=== PATIENT | male | born 1975 | race Caucasian/White ===

== ENCOUNTER 2023-07-17 12:15 | Emergency (ER) | payer SELFPAY ==
[~2023-07-17] VITALS: Ht 182.9 cm; Wt 120.2 kg
[2023-07-17 17:06] LABS: INFLUENZA B NAA NEGATIVE (NEGATIVE); RESPIRATORY SYNCYTIAL VIR NAA NEGATIVE (NEGATIVE)
[2023-07-17 17:30] VITALS: BP 110/81
== END 2023-07-17 17:44 | disposition left against medical advice (07) ==
LOC: ED 12:15
PROVIDERS: Emergency Medicine
DX: R51.9 Headache, unspecified (principal); R11.0 Nausea; Z53.21 Procedure and treatment not carried out due to patient leaving prior to being seen by health care provider
CPT/HCPCS: 87502; U0002

== ENCOUNTER 2024-04-28 22:46 | Emergency (ER) | payer OTHER ==
[~2024-04-28] VITALS: Ht 182.9 cm; Wt 113.3 kg
--- OUTSIDE RECORDS SUMMARY | 2024-04-28 22:47 | XMS ---
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 - Patient eloped before treatment completed. - Patient with suicidal and/or homicidal ideations eloped. Details: Patient LWBS CRITERIA MET - Group Notification CARE PROVIDERS There are no care providers on record at this time. Ramona has no Care Guidelines for this patient. E.D. VISIT COUNT (12 MO.) 2 [facility]. TOTAL 2 NOTE: Visits indicate total known visits. ED/C VISIT TRACKING (12 MO.) 04/28/2024 22:46 [facility] [place] TYPE: Emergency COMPLAINT: - ABD PAIN 07/17/2023 12:19 [facility] TYPE: Emergency COMPLAINT: - HEADACHE, NAUSEA, SINUS PRESSURE DIAGNOSES: - Headache, unspecified - Nausea - Procedure and treatment not carried out due to patient leaving prior to being seen by health care provider INPATIENT VISIT TRACKING (12 MO.) No inpatient visits to display in this time frame [id number]
[2024-04-28] MEDS ORDERED: JARDIANCE10 MG PO (22:59)
[2024-04-28] MEDS ORDERED: METFORMIN HCL1000 MG PO (22:59)
[2024-04-28] MEDS ORDERED: PROTONIX40 MG PO (22:59)
[2024-04-28] MEDS ORDERED: LIPITOR20 MG PO (22:59)
[2024-04-28] MEDS ORDERED: HYDROCHLOROTH12.5 M1 (23:00)
[2024-04-28] MEDS ORDERED: ACTOS15 MG PO (23:00)
[2024-04-28 23:07] LABS: HEMOGLOBIN 14.6 g/dL (12.0-18.0); RBC 4.96 M/ul (4.3-5.7)
[2024-04-28 23:10] LABS: HEMATOCRIT 43.3 % (35.0-50.0); MCH 29.5 (27-36); MCHC 33.8 g/dl (30-36); MCV 87.3 fl (81-99); PLATELET COUNT 365 K/uL (140-440); RDW 14.1 (10.5-15.0)
[2024-04-28] MEDS ORDERED: ondansetron HCL 4 MG/2 ML VIAL IV ONE ×2 (23:15→23:30)
[2024-04-28 23:21] LABS: ALBUMIN 3.8 g/dL (3.4-5.0); ALBUMIN/GLOBULIN RATIO 1.03 (1.1-2.4); ANION GAP 14.7 (7-21); BILIRUBIN, TOTAL 0.7 ng/dL (0.2-1.0); BUN/CREATININE RATIO 7.85 (6.0-28.6); CALCIUM 9.3 mg/dL (8.5-10.1); CREATININE, SERUM 1.4 mg/dL (0.70-1.30); MAGNESIUM 1.7 mg/dL (1.8-2.4); POTASSIUM 3.7 mmol/L (3.5-5.1); PROTEIN, TOTAL 7.5 g/dL (6.4-8.2)
[2024-04-28 23:22] LABS: BANDS, MANUAL DIFF 2; BASOPHILS, MANUAL DIFF 1; LYMPHOCYTES, MANUAL DIFF 16; MONOCYTES, MANUAL DIFF 10; NEUTROPHILS, MANUAL DIFF 71
[2024-04-28] MEDS ORDERED: KETOROLAC TROMETHAMINE 30 MG/ML VIAL IV ONE (23:30)
[2024-04-28] MEDS ORDERED: LACTATED RINGER'S 1,000 ML IV ONE (23:30)
[2024-04-28] MEDS ORDERED: metroNIDAZOLE 250 MG TAB PO ONE (23:30)
[2024-04-28] MEDS ORDERED: CIPROFLOXACIN 500 MG TAB PO ONE (23:30)
[2024-04-28 23:53] LABS: LACTIC ACID, BLOOD 1.8 mmol/L (0.4-2.0)
[2024-04-29 00:07] LABS: BILIRUBIN, URINE NEGATIVE (negative); BLOOD/HGB, URINE NEGATIVE (Negative); KETONE, URINE NEGATIVE (Negative); LEUK ESTERASE, URINE NEGATIVE (negative); NITRITE, URINE NEGATIVE (negative)
[2024-04-29] MEDS ORDERED: AMOX TR-K CLV1 EAC1 PO (00:36)
[2024-04-29] MEDS ORDERED: ONDANSETRON ODT4 MG PO (00:39)
[2024-04-29 00:50] VITALS: BP 92/59
== END 2024-04-29 00:47 | disposition home or self-care (01) ==
LOC: ED 22:46
PROVIDERS: Internal Medicine
DX: K57.32 Diverticulitis of large intestine without perforation or abscess without bleeding (principal); E11.9 Type 2 diabetes mellitus without complications; I10 Essential (primary) hypertension; K21.9 Gastro-esophageal reflux disease without esophagitis; Z91.041 Radiographic dye allergy status; Z79.899 Other long term (current) drug therapy
CPT/HCPCS: 36415; 74176; 80053; 81003; 83605; 83690; 83735; 85025; 87040; 96361; 96374; 96375; 99284-25; J1885; J2405; J7121

== ENCOUNTER 2024-06-05 07:20 | Emergency (ER) | payer OTHER ==
[~2024-06-05] VITALS: Ht 182.9 cm; Wt 113.0 kg
[~2024-06-05 07:20] MED LIST: ACTOS15 MG PO; AMOX TR-K CLV1 EAC1 PO; HYDROCHLOROTH12.5 M1; JARDIANCE10 MG PO; LIPITOR20 MG PO; METFORMIN HCL1000 MG PO; ONDANSETRON ODT4 MG PO; PROTONIX40 MG PO
--- OUTSIDE RECORDS SUMMARY | 2024-06-05 07:26 | XMS ---
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 - Patient eloped before treatment completed. - Patient with suicidal and/or homicidal ideations eloped. Details: Patient LWBS CRITERIA MET - Group Notification CARE PROVIDERS There are no care providers on record at this time. Ramona has no Care Guidelines for this patient. E.D. VISIT COUNT (12 MO.) 3 [facility]. TOTAL 3 NOTE: Visits indicate total known visits. ED/C VISIT TRACKING (12 MO.) 06/05/2024 07:21 [facility] [place] TYPE: Emergency COMPLAINT: - ABDOMINAL PAIN 04/28/2024 22:46 [facility] [place] TYPE: Emergency COMPLAINT: - ABD PAIN DIAGNOSES: - Diverticulitis of large intestine without perforation or abscess without bleeding - Essential (primary) hypertension - Gastro-esophageal reflux disease without esophagitis - Lower abdominal pain, unspecified - Other mcfp (current) drug therapy - Radiographic dye allergy status - Type 2 diabetes mellitus without complications 07/17/2023 12:19 [facility] [place] TYPE: Emergency COMPLAINT: - HEADACHE, NAUSEA, SINUS PRESSURE DIAGNOSES: - Headache, unspecified - Nausea - Procedure and treatment not carried out due to patient leaving prior to being seen by health care provider INPATIENT VISIT TRACKING (12 MO.) No inpatient visits to display in this time frame [id number]
[2024-06-05] MEDS ORDERED: SODIUM CHLORIDE 0.9% 1,000 ML IV PRN (07:45)
[2024-06-05] MEDS ORDERED: ondansetron HCL 4 MG/2 ML VIAL IV ONE (07:45)
[2024-06-05 07:50] LABS: HEMOGLOBIN 14.5 g/dL (12.0-18.0)
[2024-06-05 07:53] LABS: BASOPHILS 0.6 % (0-2); EOSINOPHILS 1.5 % (0-6); HEMATOCRIT 42.5 % (35.0-50.0); LYMPHOCYTES 17.5 % (24-44); MCH 29.6 (27-36); MCHC 34.1 g/dl (30-36); MCV 86.9 fl (81-99); MONOCYTES 7.3 % (0-12); NEUTROPHILS 73.1 % (39-80); PLATELET COUNT 371 K/uL (140-440); RBC 4.89 M/ul (4.3-5.7); RDW 14.5 (10.5-15.0)
[2024-06-05 07:59] LABS: ALBUMIN 3.9 g/dL (3.4-5.0); ANION GAP 15.1 (7-21); BILIRUBIN, TOTAL 0.6 ng/dL (0.2-1.0); BUN/CREATININE RATIO 10.07 (6.0-28.6); CALCIUM 9.6 mg/dL (8.5-10.1); CREATININE, SERUM 1.29 mg/dL (0.70-1.30); POTASSIUM 4.1 mmol/L (3.5-5.1); PROTEIN, TOTAL 7.8 g/dL (6.4-8.2)
[2024-06-05] MEDS ORDERED: PIPERACILLIN/TAZOBACTAM 4.5 GM in DEXTROSE 5% 100 ML IV ONE (08:30)
[2024-06-05] MEDS ORDERED: AMOX TR-K CLV1 EAC1 PO (08:32)
[2024-06-05 09:32] VITALS: BP 107/87
== END 2024-06-05 09:33 | disposition home or self-care (01) ==
LOC: ED 07:20
PROVIDERS: Emergency Medicine
DX: K57.32 Diverticulitis of large intestine without perforation or abscess without bleeding (principal); E11.9 Type 2 diabetes mellitus without complications; I10 Essential (primary) hypertension; K21.9 Gastro-esophageal reflux disease without esophagitis; Z79.84 Long term (current) use of oral hypoglycemic drugs; Z79.899 Other long term (current) drug therapy; Z91.041 Radiographic dye allergy status
CPT/HCPCS: 36415; 74176; 80053; 83690; 85025; 96365; 96375; 99284-25; J2405; J2543; J7030

== ENCOUNTER 2024-06-14 04:09 | Emergency (ER) | payer OTHER ==
[~2024-06-14] VITALS: Ht 182.9 cm; Wt 114.5 kg
--- OUTSIDE RECORDS SUMMARY | 2024-06-14 04:16 | XMS ---
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 - Patient eloped before treatment completed. - Patient with suicidal and/or homicidal ideations eloped. Details: Patient LWBS CRITERIA MET - Group Notification - [facility] - 2 Visits in 30 Days CARE PROVIDERS There are no care providers on record at this time. Ramona has no Care Guidelines for this patient. EKindra. VISIT COUNT (12 MO.) 4 [facility] H. TOTAL 4 NOTE: Visits indicate total known visits. 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 - Radiographic dye allergy status - Type 2 diabetes mellitus without complications 04/28/2024 22:46 [facility] TYPE: Emergency COMPLAINT: - ABD PAIN DIAGNOSES: - Diverticulitis of large intestine without perforation or abscess without bleeding - Essential (primary) hypertension - Gastro-esophageal reflux disease without esophagitis - Lower abdominal pain, unspecified - Other senior living (current) drug therapy - Radiographic dye allergy status - Type 2 diabetes mellitus without complications 07/17/2023 12:19 [facility] TYPE: Emergency COMPLAINT: - HEADACHE, NAUSEA, SINUS PRESSURE DIAGNOSES: - Headache, unspecified - Nausea - Procedure and treatment not carried out due to patient leaving prior to being seen by health care provider INPATIENT VISIT TRACKING (12 MO.) No inpatient visits to display in this time frame [id number]
[2024-06-14] MEDS ORDERED: ondansetron HCL 4 MG/2 ML VIAL IV ONE (04:30)
[2024-06-14 04:36] LABS: BASOPHILS 0.7 % (0-2); EOSINOPHILS 1.4 % (0-6); HEMATOCRIT 41.6 % (35.0-50.0); HEMOGLOBIN 14.4 g/dL (12.0-18.0); LYMPHOCYTES 19.5 % (24-44); MCH 30.1 (27-36); MCHC 34.7 g/dl (30-36); MCV 86.8 fl (81-99); MONOCYTES 7.1 % (0-12); NEUTROPHILS 71.3 % (39-80); PLATELET COUNT 428 K/uL (140-440); RBC 4.79 M/ul (4.3-5.7)
[2024-06-14 04:43] LABS: ALBUMIN/GLOBULIN RATIO 1.08 (1.1-2.4); ANION GAP 9.7 (7-21); BILIRUBIN, TOTAL 0.4 ng/dL (0.2-1.0); BUN/CREATININE RATIO 9.33 (6.0-28.6); CALCIUM 9.4 mg/dL (8.5-10.1); CREATININE, SERUM 1.5 mg/dL (0.70-1.30); MAGNESIUM 1.5 mg/dL (1.8-2.4); POTASSIUM 3.7 mmol/L (3.5-5.1); PROTEIN, TOTAL 7.7 g/dL (6.4-8.2)
[2024-06-14 04:45] LABS: BILIRUBIN, URINE NEGATIVE (negative); BLOOD/HGB, URINE NEGATIVE (Negative); KETONE, URINE TRACE (Negative); LEUK ESTERASE, URINE NEGATIVE (negative); NITRITE, URINE NEGATIVE (negative)
[2024-06-14] MEDS ORDERED: SODIUM CHLORIDE 0.9% 1,000 ML IV SCH (05:00)
[2024-06-14] MEDS ORDERED: HYDROmorphone HCL 1 MG/ML SYR IV PRN (05:15)
[2024-06-14] MEDS ORDERED: CEFEPIME HCL/D5W 2 GM/100 ML PIGGYBACK IV ONE (05:45)
[2024-06-14] MEDS ORDERED: HYDROCODONE BIT/ACETAMINOPHEN 5/325 MG 1 TAB HOME.PACK PO PRN (05:45)
[2024-06-14] MEDS ORDERED: HYDROCODON-ACE1 EA10 PO (05:54)
[2024-06-14] MEDS ORDERED: CIPRO500 MG PO (05:54)
[2024-06-14] MEDS ORDERED: METRONIDAZOLE500 MG PO (05:54)
[2024-06-14 07:08] VITALS: BP 111/77
== END 2024-06-14 07:10 | disposition home or self-care (01) ==
LOC: ED 04:09
PROVIDERS: Emergency Medicine
DX: K57.32 Diverticulitis of large intestine without perforation or abscess without bleeding (principal); R91.1 Solitary pulmonary nodule; E11.9 Type 2 diabetes mellitus without complications; I10 Essential (primary) hypertension; K21.9 Gastro-esophageal reflux disease without esophagitis; Z91.041 Radiographic dye allergy status; Z79.84 Long term (current) use of oral hypoglycemic drugs; Z79.899 Other long term (current) drug therapy
CPT/HCPCS: 36415; 74176; 80053; 81003; 83690; 83735; 85025; 96365; 96367; 96375; 99284-25; A9270; J0692; J2405; J7030

== ENCOUNTER 2025-05-06 23:52 | Emergency (ER) | payer OTHER ==
[~2025-05-06] VITALS: Ht 182.9 cm; Wt 125.1 kg
[~2025-05-06 23:52] MED LIST changes: +CIPRO500 MG PO; +HYDROCODON-ACE1 EA10 PO; +METRONIDAZOLE500 MG PO
--- OUTSIDE RECORDS SUMMARY | 2025-05-06 23:53 | XMS ---
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 Ramona has no Care Guidelines for this patient. Bri VISIT COUNT (12 MO.) 3 [facility] TOTAL 3 NOTE: Visits indicate total known visits. ED/UCC VISIT TRACKING (12 MO.) 05/06/2025 23:53 [facility] TYPE: Emergency COMPLAINT: - ABDOMINAL PAIN 06/14/2024 04:10 [facility] TYPE: Emergency COMPLAINT: - STOMACH PAIN DIAGNOSES: - Diverticulitis of large intestine without perforation or abscess without bleeding - Essential (primary) hypertension - Gastro-esophageal reflux disease without esophagitis - terminal operator (current) use of oral hypoglycemic drugs - Other roasterman (current) drug therapy - Radiographic dye allergy status - Solitary pulmonary nodule - Type 2 diabetes mellitus without complications - Unspecified abdominal pain 06/05/2024 07:21 [facility] TYPE: Emergency COMPLAINT: - ABDOMINAL PAIN DIAGNOSES: - Diverticulitis of large intestine without perforation or abscess without bleeding - Essential (primary) hypertension - Gastro-esophageal reflux disease without esophagitis - terminal operator (current) use of oral hypoglycemic drugs - Lower abdominal pain, unspecified - Other detention (current) drug therapy - Radiographic dye allergy status - Type 2 diabetes mellitus without complications INPATIENT VISIT TRACKING (12 MO.) No inpatient visits to display in this time frame [id number]
[2025-05-07] MEDS ORDERED: MORPHINE SULFATE 4 MG/ML VIAL IV ONE (00:15)
[2025-05-07] MEDS ORDERED: LACTATED RINGER'S 1,000 ML IV ONE (00:15)
[2025-05-07 00:16] LABS: BASOPHILS 0.4 % (0.2-1.2); EOSINOPHILS 3.5 % (0.8-7.0); LYMPHOCYTES 23.5 % (21.8-53.1); MCH 28.7 PG (25.7-32.2); MCHC 33.5 g/dL (32.3-36.5); MCV 85.6 fL (79.0-92.2); MONOCYTES 8.8 % (5.3-12.2); NEUTROPHILS 63.4 % (34.0-67.9); RBC 5.13 M/uL (4.63-6.08)
[2025-05-07 00:31] LABS: ALT (SGPT) 25.0 U/L (14-59); AST (SGOT) 14.0 U/L (15-37); GLOMERULAR FILTRATION RATE,EST 56.0 mL/min (>60); PROTEIN, TOTAL 7.6 g/dL (6.4-8.2); UREA NITROGEN 9.0 mg/dL (7-18)
[2025-05-07 00:55] LABS: BLOOD/HGB, URINE NEGATIVE (Negative); KETONE, URINE NEGATIVE (Negative); LEUK ESTERASE, URINE NEGATIVE (negative); NITRITE, URINE NEGATIVE (negative)
[2025-05-07] MEDS ORDERED: HYDROCODON-ACE1 EA10 PO (01:30)
[2025-05-07] MEDS ORDERED: ONDANSETRON ODT8 MG PO (01:30)
[2025-05-07] MEDS ORDERED: PIPERACILLIN/TAZOBACTAM 4.5 GM in SODIUM CHLORIDE 0.9% 100 ML IV ONE (01:30)
[2025-05-07] MEDS ORDERED: AMOX TR-K CLV1 EAC1 PO (01:30)
[2025-05-07] MEDS ORDERED: HYDROCODONE BIT/ACETAMINOPHEN 5/325 MG 1 TAB HOME.PACK PO ONE (01:45)
[2025-05-07] MEDS ORDERED: ONDANSETRON 4 MG HOME.PACK SL ONE (01:45)
[2025-05-07 02:52] VITALS: BP 98/64
== END 2025-05-07 02:52 | disposition home or self-care (01) ==
LOC: ED 23:52
PROVIDERS: Family Medicine
DX: K57.32 Diverticulitis of large intestine without perforation or abscess without bleeding (principal); R91.1 Solitary pulmonary nodule; E11.9 Type 2 diabetes mellitus without complications; I10 Essential (primary) hypertension; K21.9 Gastro-esophageal reflux disease without esophagitis; Z91.041 Radiographic dye allergy status; Z79.84 Long term (current) use of oral hypoglycemic drugs; Z79.899 Other long term (current) drug therapy
CPT/HCPCS: 36415; 74176; 80053; 81003; 83690; 83735; 85025; 96361; 96365; 96375; 99284-25; A9270; J2270; J2405; J2543; J7121

== ENCOUNTER 2025-05-17 10:15 | Emergency (ER) | payer OTHER ==
[~2025-05-17] VITALS: Ht 182.9 cm; Wt 121.0 kg
[~2025-05-17 10:15] MED LIST changes: +ONDANSETRON ODT8 MG PO
--- OUTSIDE RECORDS SUMMARY | 2025-05-17 10:22 | XMS ---
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 Ramona has no Care Guidelines for this patient. [facility] NOTE: Visits indicate total known visits. ED/C VISIT TRACKING (12 MO.) [facility] COMPLAINT: - ABDOMINAL PAIN 05/06/2025 23:53 [facility] TYPE: Emergency COMPLAINT: - ABDOMINAL PAIN DIAGNOSES: - Diverticulitis of large intestine without perforation or abscess without bleeding - Essential (primary) hypertension - Gastro-esophageal reflux disease without esophagitis - Left lower quadrant pain - buttermaker continuous churn (current) use of oral hypoglycemic drugs - Other buttermaker continuous churn (current) drug therapy - Radiographic dye allergy status - Solitary pulmonary nodule - Type 2 diabetes mellitus without complications 06/14/2024 04:10 [facility] TYPE: Emergency COMPLAINT: - STOMACH PAIN DIAGNOSES: - Diverticulitis of large intestine without perforation or abscess without bleeding - Essential (primary) hypertension - Gastro-esophageal reflux disease without esophagitis - halfway (current) use of oral hypoglycemic drugs - Other buttermaker continuous churn (current) drug therapy - Radiographic dye allergy status - Solitary pulmonary nodule - Type 2 diabetes mellitus without complications - Unspecified abdominal pain 06/05/2024 07:21 [facility] TYPE: Emergency COMPLAINT: - ABDOMINAL PAIN DIAGNOSES: - Diverticulitis of large intestine without perforation or abscess without bleeding - Essential (primary) hypertension - Gastro-esophageal reflux disease without esophagitis - halfway (current) use of oral hypoglycemic drugs - Lower abdominal pain, unspecified - Other buttermaker continuous churn (current) drug therapy - Radiographic dye allergy status - Type 2 diabetes mellitus without complications INPATIENT VISIT TRACKING (12 MO.) No inpatient visits to display in this time frame [id number]
[2025-05-17] MEDS ORDERED: LISINOPRIL-HCT1 EAC2 PO (10:43)
[2025-05-17 10:44] LABS: BASOPHILS 0.4 % (0.2-1.2); EOSINOPHILS 1.5 % (0.8-7.0); LYMPHOCYTES 14.3 % (21.8-53.1); MCH 28.8 PG (25.7-32.2); MCHC 33.9 g/dL (32.3-36.5); MCV 84.9 fL (79.0-92.2); MONOCYTES 8.6 % (5.3-12.2); NEUTROPHILS 74.5 % (34.0-67.9); RBC 4.90 M/uL (4.63-6.08)
[2025-05-17 10:59] LABS: ALT (SGPT) 17.0 U/L (14-59); AST (SGOT) 11.0 U/L (15-37); GLOMERULAR FILTRATION RATE,EST 58.0 mL/min (>60); PROTEIN, TOTAL 8.1 g/dL (6.4-8.2); UREA NITROGEN 14.0 mg/dL (7-18)
[2025-05-17] MEDS ORDERED: MORPHINE SULFATE 4 MG/ML VIAL IV ONE (12:45)
[2025-05-17] MEDS ORDERED: CIPROFLOXACIN/DEXTROSE 400 MG/200 ML PIGGYBACK IV ONE (12:45)
[2025-05-17] MEDS ORDERED: SODIUM CHLORIDE 0.9% 1,000 ML IV PRN (12:45)
[2025-05-17] MEDS ORDERED: ONDANSETRON ODT4 MG PO (13:13)
[2025-05-17] MEDS ORDERED: CIPRO500 MG PO (13:13)
[2025-05-17] MEDS ORDERED: METRONIDAZOLE500 MG PO (13:13)
[2025-05-17] MEDS ORDERED: HYDROCODON-ACE1 EA10 PO (13:13)
[2025-05-17 14:19] VITALS: BP 109/61
== END 2025-05-17 14:20 | disposition home or self-care (01) ==
LOC: ED 10:15
PROVIDERS: Emergency Medicine
DX: K57.32 Diverticulitis of large intestine without perforation or abscess without bleeding (principal); E11.9 Type 2 diabetes mellitus without complications; I10 Essential (primary) hypertension; K21.9 Gastro-esophageal reflux disease without esophagitis; Z79.84 Long term (current) use of oral hypoglycemic drugs; Z79.899 Other long term (current) drug therapy; Z91.041 Radiographic dye allergy status
CPT/HCPCS: 36415; 74176; 80053; 83690; 85025; 85060; 96365; 96375; 99284-25; J0744; J2270; J2405; J7030